=== PATIENT | male | born 1995 | race Caucasian/White ===

== ENCOUNTER 2018-11-19 21:19 | Emergency (ER) | payer MEDICAID, OTHER, SELFPAY ==
[~2018-11-19] VITALS: Ht 180.3 cm; Wt 109.1 kg
[2018-11-19] MEDS ORDERED: AUGMENTIN 875 MG TAB PO ONE (22:45)
[2018-11-19] MEDS ORDERED: ADACEL/BOOSTRIX VACCINE (DIPHTH/PERTUSS/ACELL/TETANUS)0.5ML SYR (90715) IM ONE (22:45)
[2018-11-19] MEDS ORDERED: IBUPROFEN 800 MG TAB PO ONE (22:45)
[2018-11-19] MEDS ORDERED: AUGM875T28 PO (23:14)
[2018-11-19] MEDS ORDERED: IBUP-1022 PO (23:14)
[2018-11-19 23:21] VITALS: BP 138/74
--- NOTE | 2018-11-20 03:49 | REP ---
Clinical: Puncture wound. Foreign body. Technique: AP and lateral views of the right foot. Findings: The osseous structures are intact. The subcutaneous tissues appear relatively normal. No obvious subcutaneous emphysema or laceration appreciated. No obvious foreign body identified. Impression: Relatively normal examination without evidence for acute injury. No obvious subcutaneous emphysema or foreign body. Electronically Signed by Martir Hernandez MD 11/20/2018 03:41 A
== END 2018-11-19 23:23 | disposition home or self-care (01) ==
LOC: M ED 23:13
DX: S91.331A Puncture wound without foreign body, right foot, initial encounter (principal); W26.8XXA Contact with other sharp object(s), not elsewhere classified, initial encounter; Y92.89 Other specified places as the place of occurrence of the external cause; Y99.0 Civilian activity done for income or pay; F17.210 Nicotine dependence, cigarettes, uncomplicated

== ENCOUNTER → 2019-01-29 | Outpatient (REF) | payer SELFPAY ==
[~2019-01-29] MED LIST: AUGM875T28 PO; IBUP-1022 PO
[2019-01-29 19:23] LABS: INFLUENZA A AMPLIFICATION NEGATIVE (NEGATIVE); INFLUENZA B AMPLIFICATION NEGATIVE (NEGATIVE)
== END ==
LOC: M LAB REF 18:28
PROVIDERS: ATTEND Physician Assistant
DX: J11.1 Influenza due to unidentified influenza virus with other respiratory manifestations (principal)

== ENCOUNTER 2022-09-20 14:12 | Emergency (ER) | payer OTHER, SELFPAY ==
[~2022-09-20] VITALS: Ht 180.3 cm; Wt 120.4 kg
[2022-09-20 14:13] VITALS: BP 135/94
[2022-09-20] MEDS ORDERED: ACET-683 PO (14:36)
[2022-09-20] MEDS ORDERED: BUSP5TA (14:36)
[2022-09-20] MEDS ORDERED: HYDR-3363 (14:36)
== END 2022-09-20 15:44 | disposition home or self-care (01) ==
LOC: M ED 14:12
DX: S90.32XA Contusion of left foot, initial encounter (principal); W22.8XXA Striking against or struck by other objects, initial encounter; Y92.009 Unspecified place in unspecified non-institutional (private) residence as the place of occurrence of the external cause; F17.200 Nicotine dependence, unspecified, uncomplicated

== ENCOUNTER 2022-12-13 13:21 | Emergency (ER) | payer OTHER ==
[~2022-12-13] VITALS: Ht 180.3 cm; Wt 106.8 kg
[~2022-12-13 13:21] MED LIST changes: +ACET-683 PO; +BUSP5TA; +HYDR-3363
[2022-12-13 13:22] VITALS: BP 156/79
[2022-12-13] MEDS ORDERED: IBUPROFEN 600MG TAB PO ONE (13:50)
== END 2022-12-13 19:28 | disposition left against medical advice (07) ==
LOC: M ED 13:21
DX: Z53.21 Procedure and treatment not carried out due to patient leaving prior to being seen by health care provider (principal)